=== PATIENT | female | born 1970 | race African-American/Black ===

== ENCOUNTER 2016-02-22 20:53 | Emergency (ER) | payer SELFPAY ==
--- NOTE | 2016-02-22 21:10 | ER Document Report ---
ED Medical Screen (RME) - General Stated Complaint: LEFT FLANK PAIN Mode of Arrival: Ambulatory Information source: Patient Notes: Patient presents to emergency Department with complaints of left-sided flank pain. Patient reports history of kidney stones at least 22 times. Patient reports pain started 4 hours ago. Patient reports hematuria and nausea. Patient reports she's had so many CT's she could [id number]. Patient also has a right nephrectomy. Physical Exam - Vital signs Vitals: Temp Pulse Resp BP Pulse Ox 98.2 F 106 H 20 154/86 H 100 02/22/16 21:04 02/22/16 21:04 02/22/16 21:04 02/22/16 21:04 02/22/16 21:04 Course - Vital Signs Vital signs: Temp Pulse Resp BP Pulse Ox 98.2 F 106 H 20 154/86 H 100 02/22/16 21:04 02/22/16 21:04 02/22/16 21:04 02/22/16 21:04 02/22/16 21:04
[2016-02-22 21:51] LABS: APPEARANCE,URINE SLIGHTLY-CLOUDY; BILIRUBIN,URINE NEGATIVE (NEGATIVE); GLUCOSE, URINE NEGATIVE (NEGATIVE); KETONES,URINE NEGATIVE (NEGATIVE); LEUKOCYTE ESTERASE,URINE NEGATIVE (NEGATIVE); NITRITE,URINE NEGATIVE (NEGATIVE); PROTEIN,URINE NEGATIVE (NEGATIVE); URINE SPECIFIC GRAVITY 1.012; UROBILINOGEN,URINE NEGATIVE mg/dL (<2.0)
[2016-02-23] MEDS ORDERED: HYDROMORPHONE HCL INJ/PF 2 MG/ML AMPULE IM ONE ×2 (00:52→02:18)
[2016-02-23] MEDS ORDERED: ONDANSETRON 4 MG TAB.RAPDIS PO ONE (00:52)
[2016-02-23] MEDS ORDERED: DIPHENHYDRAMINE HCL 25 MG CAPSULE PO ONE (00:52)
--- NOTE | 2016-02-23 01:07 | ER Document Report ---
ED GI/ - General Chief Complaint: Possible Kidney Stone Stated Complaint: LEFT FLANK PAIN Time seen by provider: 01:00 Mode of Arrival: Ambulatory Notes: Patient is a 45 year old female that comes to the ED for chief complaint of pain in her left flank that began this evening. She notes blood in her urine. Hx of 22 kidney stones, complications requiring nephrostomy tubes and ultimately a right nephrectomy. She denies any daily medications. New here from [place], does not have a urologist yet. Reports nausea, denies vomiting, denies fever. - Related Data Allergies/Adverse Reactions: metoclopramide [From Reglan] Allergy (Verified 02/22/16 21:10) morphine Allergy (Verified 02/22/16 21:10) prochlorperazine [From Compazine] Allergy (Verified 02/22/16 21:10) NSAIDS (Non-Steroidal Anti-Inflamma Adverse Reaction (Verified 02/22/16 21:10) Past Medical History - General Information source: Patient - Social History Smoking Status: Never Smoker Frequency of alcohol use: None Drug Abuse: None Lives with: Family Family History: Reviewed & Not Pertinent Renal/ Medical History: Reports: Hx Kidney Stones. Denies: Hx Peritoneal Dialysis Past Surgical History: Reports: Hx Cholecystectomy, Hx Genitourinary Surgery - Right nephrectomy - Immunizations Immunizations up to date: Yes Hx Diphtheria, Pertussis, Tetanus Vaccination: Yes Review of Systems - Review of Systems Constitutional: No symptoms reported EENT: No symptoms reported Cardiovascular: No symptoms reported Respiratory: No symptoms reported Gastrointestinal: See HPI Genitourinary: See HPI Female Genitourinary: No symptoms reported Musculoskeletal: No symptoms reported Skin: No symptoms reported Hematologic/Lymphatic: No symptoms reported Neurological/Psychological: No symptoms reported Physical Exam - Vital signs Vitals: Temp Pulse Resp BP Pulse Ox 98.2 F 106 H 20 154/86 H 100 02/22/16 21:04 02/22/16 21:04 02/22/16 21:04 02/22/16 21:04 02/22/16 21:04 Interpretation: Normal - General General appearance: Anxious In distress: Moderate - patient in obvious pain, cannot sit still on the bed, pacing the room - HEENT Head: Normocephalic, Atraumatic Eyes: Normal Conjunctiva: Normal Extraocular movements intact: Yes Eyelashes: Normal Pupils: PERRL Nasal: Normal Mouth/Lips: Normal Mucous membranes: Normal Pharynx: Normal Neck: Normal - Respiratory Respiratory status: No respiratory distress Chest status: Nontender Breath sounds: Normal Chest palpation: Normal - Cardiovascular Rhythm: Regular Heart sounds: Normal auscultation Murmur: No - Abdominal Inspection: Normal Distension: No distension Bowel sounds: Normal Tenderness: Tender - Generalized midabdominal tenderness Organomegaly: No organomegaly - Back Back: Tender - left CVA - Extremities General upper extremity: Normal inspection, Nontender, Normal color, Normal ROM , Normal temperature General lower extremity: Normal inspection, Nontender, Normal color, Normal ROM , Normal temperature, Normal weight bearing. No: Erin's sign - Neurological Neuro grossly intact: Yes Cognition: Normal Orientation: AAOx4 [place] Coma Scale Eye Opening: Spontaneous [place] Coma Scale Verbal: Oriented [place] Coma Scale Motor: Obeys Commands Cori Coma Scale Total: 15 Speech: Normal Motor strength normal: LUE, RUE, LLE, RLE Sensory: Normal - Psychological Associated symptoms: Anxious - Skin Skin Temperature: Warm Skin Moisture: Dry Skin Color: Normal Course - Re-evaluation Re-evalutation: Patient initially very uncomfortable, after medications this resolved. Hematuria noted, CBC and chemistry generally unremarkable including normal renal functioning. Discussed slightly elevated LFTs with patient, she states she'll monitor this with primary care. CT shows no acute abnormality, shows right nephrectomy and cholecystectomy. Discussed with patient. Based on patient's symptoms, hematuria, I suspect that she most likely passed a stone already. Patient is very relieved about this. Patient asking for a local urology referral. - Vital Signs Vital signs: Temp Pulse Resp BP Pulse Ox 98.3 F 95 18 134/95 H 98 02/23/16 04:08 02/23/16 04:08 02/23/16 04:08 02/23/16 04:08 02/23/16 04:08 - Laboratory Result Diagrams: 02/23/16 01:50 02/23/16 01:50 Laboratory results interpreted by me: 02/22/16 02/23/16 02/23/16 21:20 01:50 01:50 Hgb 11.7 L MCHC 31.5 L RDW 14.2 H AST 99 H ALT 115 H Urine Blood LARGE H Discharge - Discharge Clinical Impression: Flank pain, Hematuria Condition: Stable Disposition: HOME, SELF-CARE Additional Instructions: Your urine shows blood, however no kidney stones or signs of obstruction are seen on your imaging. It is quite possible that you already passed the stone. Follow-up with the urology referral. Your liver enzymes were slightly elevated, avoid large amounts of Tylenol or alcohol, follow-up with primary care for additional monitoring of this. Return to the emergency department for any concerning or worsening symptoms. [facility] Address: [address] [place] [address] Prescriptions: Oxycodone HCl [Oxycodone HCl 10 MG Tablet] 1 tab PO Q6H PRN #10 tablet PRN Reason: PAIN
[2016-02-23 02:05] LABS: ABSOLUTE BASOPHILS # (AUTO) 0.1 10^3/uL (0.0-0.2); ABSOLUTE EOSINOPHILS # (AUTO) 0.1 10^3/uL (0.0-0.6); ABSOLUTE LYMPHOCYTES (AUTO) 1.6 10^3/uL (0.5-4.7); ABSOLUTE MONOCYTES (AUTO) 0.6 10^3/uL (0.1-1.4); ABSOLUTE NEUT (AUTO) 7.7 10^3/uL (1.7-8.2); BASOPHILS % (AUTO) 0.5 % (0-2); EOSINOPHILS % (AUTO) 0.9 % (0-6); HEMATOCRIT 37.2 % (36.0-47.0); HEMOGLOBIN 11.7 g/dL (12.0-15.5); HGB HCT DIFFERENCE -2.1; MEAN CORPUSCULAR HEMOGLOBIN 30.3 pg (27.0-33.4); MEAN CORPUSCULAR HGB CONC 31.5 g/dL (32.0-36.0); MEAN CORPUSCULAR VOLUME 96 fl (80-97); MONOCYTES % (AUTO) 6.3 % (3-13); RED BLOOD COUNT 3.86 10^6/uL (3.72-5.28); RED CELL DISTRIBUTION WIDTH 14.2 % (11.5-14.0); SEGMENTED NEUTROPHILS % (AUTO) 76.3 % (42-78); WHITE BLOOD COUNT 10.1 10^3/uL (4.0-10.5)
[2016-02-23] MEDS ORDERED: DIPHENHYDRAMINE HCL 50 MG/ML VIAL IM ONE (02:18)
[2016-02-23 02:21] LABS: ALANINE AMINOTRANSFERASE 115 U/L (9-52); ALBUMIN 4.4 g/dL (3.5-5.0); ALKALINE PHOSPHATASE 100 U/L (38-126); ANION GAP 15 (5-19); ASPARTATE AMINO TRANSFERASE 99 U/L (14-36); BILIRUBIN,TOTAL 0.7 mg/dL (0.2-1.3); BLOOD UREA NITROGEN 12 mg/dL (7-20); CALCIUM 9.7 mg/dL (8.4-10.2); CARBON DIOXIDE 25 mmol/L (22-30); CHLORIDE 104 mmol/L (98-107); CREATININE RESULT 0.73 mg/dL (0.52-1.25); GLUCOSE 82 mg/dL (75-110); POTASSIUM 4.3 mmol/L (3.6-5.0); TOTAL PROTEIN 7.9 g/dL (6.3-8.2)
[2016-02-23 04:09] VITALS: BP 134/95
== END 2016-02-23 04:09 | disposition home or self-care (01) ==
LOC: ER 20:53
DX: R10.9 Unspecified abdominal pain (principal); R31.9 Hematuria, unspecified
CPT/HCPCS: 99284; 96372; 36415; 85025; 80053; 81001; 76380; J1200; S0119; J1170